=== PATIENT | female | born 1975 | race Caucasian/White ===

== ENCOUNTER → 2018-06-09 | Outpatient (CLI) | payer SELFPAY ==
[2018-06-09 11:40] LABS: Basophils # (A) 0.1 k/uL (0-0.2); Basophils % (A) 1 %; Eosinophils # (A) 0.2 k/uL (0-0.7); Eosinophils % (A) 2 %; HCT 44.5 % (34.0-46.0); HGB 14.3 gm/dL (11.4-16.0); Lymphocytes # (A) 2.3 k/uL (1.0-4.8); Lymphocytes % (A) 23 %; MCH 26.4 pg (25.0-35.0); MCHC 32.1 g/dL (31.0-37.0); MCV 82.4 fL (80.0-100.0); Mean Platelet Volume 7.1; Monocytes # (A) 0.4 k/uL (0-1.0); Monocytes % (A) 4 %; Neutrophils % (A) 69 %; Platelet Count 436 k/uL (150-450); RDW 13.2 % (11.5-15.5)
[2018-06-09 11:53] LABS: ALT 42 U/L (9-52); AST 34 U/L (14-36); Alkaline Phosphatase 108 U/L (38-126); Anion Gap 7 mmol/L; Blood Urea Nitrogen 11 mg/dL (7-17); C Reactive Protein 29.1 mg/L (<10.0); Calcium 9.4 mg/dL (8.4-10.2); Carbon Dioxide 29 mmol/L (22-30); Chloride 104 mmol/L (98-107); Cholesterol 229 mg/dL (<200); Glucose 96 mg/dL (74-99); HDL Cholesterol 59 mg/dL (40-60); LDL Cholesterol,Calculated 123 mg/dL (0-99); Sodium 140 mmol/L (137-145); Total Bilirubin 0.4 mg/dL (0.2-1.3); Total Protein 7.2 g/dL (6.3-8.2); Triglycerides 234 mg/dL (<150)
[2018-06-09 12:26] LABS: Erythrocyte Sedimentation Rate 23 mm/hr (0-20)
[2018-06-09 17:43] LABS: Hemoglobin A1C 5.6 % (4.0-6.0)
== END | disposition home or self-care (01) ==
LOC: LABWHC1 10:56
PROVIDERS: ATTEND Internal Medicine
DX: D64.9 Anemia, unspecified (principal); E78.5 Hyperlipidemia, unspecified; E03.9 Hypothyroidism, unspecified; E11.9 Type 2 diabetes mellitus without complications; M25.50 Pain in unspecified joint; I10 Essential (primary) hypertension; E87.8 Other disorders of electrolyte and fluid balance, not elsewhere classified
CPT/HCPCS: 36415; 80053; 80061; 83036; 84439; 84443; 84481; 85025; 85652; 86140

== ENCOUNTER → 2018-08-22 | Outpatient (CLI) | payer SELFPAY ==
[2018-08-22 14:02] LABS: Uric Acid 7.2 mg/dL (3.7-7.4)
[2018-08-22 19:39] LABS: Rheumatoid Factor 7 IU/mL (0-15)
[2018-08-22 22:18] LABS: Cyclic Citrullinated Pep IgG NEGATIVE (NEGATIVE)
[2018-08-23 04:54] LABS: Angiotensin-1 Converting Enz. 52 U/L (8-52)
[2018-08-23 11:09] LABS: HLA B27 NEGATIVE
== END | disposition home or self-care (01) ==
LOC: LABWHC1 12:41
PROVIDERS: ATTEND Internal Medicine Rheumatology
DX: M13.0 Polyarthritis, unspecified (principal)
CPT/HCPCS: 36415; 82164; 82306; 82550; 84550; 86038; 86200; 86431; 86812

== ENCOUNTER → 2020-04-25 | Outpatient (CLI) | payer SELFPAY ==
[2020-04-25 16:02] LABS: DHEA Sulfate 115.6 ug/dL (26.0-430.0); Estradiol 21.4 pg/mL
[2020-04-25 16:28] LABS: Progesterone <0.2 ng/mL
== END | disposition home or self-care (01) ==
LOC: LABWHC1 10:40
PROVIDERS: ATTEND Chiropractor
DX: E55.9 Vitamin D deficiency, unspecified (principal); E34.9 Endocrine disorder, unspecified
CPT/HCPCS: 36415; 82306; 82533; 82627; 82670; 84144; 84403

== ENCOUNTER → 2020-04-25 | Outpatient (CLI) | payer SELFPAY ==
--- NOTE | 2020-04-29 08:15 | MM ---
Reason for exam: screening (asymptomatic). History: Patient is postmenopausal. Family history of breast cancer in 2 paternal aunts and breast cancer in maternal aunt. Took hormonal contraceptives for 6 years. Took estrogen for 2 years beginning at age 27. Took progesterone for 2 years beginning at age 27. Physical Findings: A clinical breast exam by your physician is recommended on an annual basis and results should be correlated with mammographic findings. MG 3D Screening Mammo W/Cad Bilateral CC and MLO view(s) were taken. No prior studies available for comparison. There are scattered fibroglandular densities. ASSESSMENT: Probably benign, BI-RAD 3 RECOMMENDATION: Follow-up diagnostic mammogram and ultrasound of the left breast in 6 months. Manage patient on a clinical basis. Consider breast ultrasound of MRI
== END | disposition home or self-care (01) ==
LOC: RADMAMWWP 10:19
PROVIDERS: ATTEND Obstetrics & Gynecology Obstetrics
DX: Z12.31 Encounter for screening mammogram for malignant neoplasm of breast (principal); Z80.3 Family history of malignant neoplasm of breast
CPT/HCPCS: 77063; 77067

== ENCOUNTER 2021-08-28 16:39 | Emergency (ER) | payer OTHER ==
[2021-08-28] MEDS ORDERED: DEXAMETHASONE SOD PHOSPHATE 10 MG/ML 1 ML VIAL IM STA (18:04)
--- NOTE | 2021-08-28 19:00 | XR ---
EXAMINATION TYPE: XR chest 2V DATE OF EXAM: 08/28/2021 COMPARISON: NONE HISTORY: Chest pain TECHNIQUE: Frontal and lateral views of the chest are obtained. FINDINGS: There is no focal air space opacity. No evidence for pneumothorax. No pleural effusion. The cardiac silhouette size is within normal limits. The osseous structures are grossly intact. IMPRESSION: 1. No acute cardiopulmonary process.
--- NOTE | 2021-08-28 19:02 | ED ---
Recheck HPI - General Chief Complaint: Recheck/Abnormal Lab/Rx Stated Complaint: COVID+ Source: patient, RN notes reviewed Mode of arrival: ambulatory Limitations: no limitations - History of Present Illness Initial Comments: Patient is a 46-year-old female presents to emergency room complaining of continued symptoms of Covid. She notes she was diagnosed last week fever and ot her symptoms or if she notes she does have a history of asthma and feels as if her test is tightening up a little bit. She notes that she is not having any difficulty eating swallowing or breathing just having some chest tightness. She denied any chest pain. She was otherwise well-appearing in no apparent distress or pain while sitting up in bed during exam and interview. She notes she wanted to come in to get checked out to make sure everything her lungs looked okay. She denied chest pain headache nausea vomiting diarrhea constipation fever fatigue chills. - Related Data Home Medications Medication Instructions Recorded Confirmed Albuterol Inhaler [Ventolin Hfa 2 puff INHALATION RT-Q4H PRN 08/28/21 08/28/21 Inhaler] Promethazine 6.25MG/5Ml [Phenergan 5 ml PO Q12H PRN 08/28/21 08/28/21 Syrup] cloNIDine HCL [Catapres] 0.1 mg PO HS 08/28/21 08/28/21 Previous Rx's Medication Instructions Recorded predniSONE 50 mg PO DAILY #5 tab 08/28/21 Allergies Allergy/AdvReac Type Severity Reaction Status Date / Time iodine Allergy Anaphylaxis Verified 08/28/21 18:23 morphine AdvReac Rash/Hives Verified 08/28/21 18:23 Review of Systems ROS Statement: Those systems with pertinent positive or pertinent negative responses have been documented in the HPI. ROS Other: All systems not noted in ROS Statement are negative. Past Medical History Past Medical History: Hypertension History of Any Multi-Drug Resistant Organisms: None Reported Past Surgical History: Cholecystectomy, Hysterectomy, Tonsillectomy Past Psychological History: No Psychological Hx Reported Smoking Status: Never smoker Past Alcohol Use History: None Reported Past Drug Use History: None Reported General Exam Limitations: no limitations General appearance: alert, in no apparent distress Head exam: Present: atraumatic, normocephalic, normal inspection Eye exam: Present: normal appearance, PERRL, EOMI. Absent: scleral icterus, conjunctival injection, periorbital swelling ENT exam: Present: normal exam, mucous membranes moist Neck exam: Present: normal inspection Respiratory exam: Present: normal lung sounds bilaterally. Absent: respiratory distress, wheezes, rales, rhonchi, stridor Cardiovascular Exam: Present: regular rate, normal rhythm, normal heart sounds. Absent: systolic murmur, diastolic murmur, rubs, gallop, clicks Extremities exam: Present: normal inspection, full ROM, normal capillary refill. Absent: tenderness, pedal edema, joint swelling, calf tenderness Neurological exam: Present: alert, oriented X3 Psychiatric exam: Present: normal affect, normal mood Skin exam: Present: warm, dry, intact, normal color. Absent: rash Course Vital Signs 08/28/21 08/28/21 17:22 18:54 Temperature 97.7 F Pulse Rate 75 Respiratory 18 22 Rate Blood Pressure 163/95 O2 Sat by Pulse 97 Oximetry Medical Decision Making - Medical Decision Making 46-year-old female 1 week Covid-positive complaining of chest tightness and mild shortness of breath, history of asthma. Chest x-ray ordered. Chest x-ray shows no acute card up on her process. 10 mg Decadron ordered. Case discussed with Dr. Monteiro, patient discharge home on oral steroids and follow-up primary care. - Radiology Data Radiology results: report reviewed, image reviewed Chest x-ray: No acute cardiopulmonary process. Disposition Clinical Impression: Shortness of breath Disposition: HOME SELF-CARE Condition: Stable Instructions (If sedation given, give patient instructions): Coronavirus Disease 2019 (COVID-19) Additional Instructions: Please return to the Emergency Department if symptoms worsen or any other concerns. Follow-up primary care 1-2 days. Take prednisone as prescribed. It may take weeks to months to return to baseline. Is patient prescribed a controlled substance at d/c from ED?: No Referrals: None,Stated [Primary Care Provider] - 1-2 days Time of Disposition: 19:36
[2021-08-28 20:34] VITALS: BP 138/86; PULSE 80; RESP 18; TEMP 97.9
== END 2021-08-28 20:20 | disposition home or self-care (01) ==
LOC: EC 16:39
DX: R06.02 Shortness of breath (principal); I10 Essential (primary) hypertension; J45.909 Unspecified asthma, uncomplicated; Z79.51 Long term (current) use of inhaled steroids
CPT/HCPCS: 71046; 99284; 96372; J1100

== ENCOUNTER → 2022-04-16 | Outpatient (CLI) | payer SELFPAY ==
[2022-04-16 14:12] LABS: HCT 43.5 % (37.2-46.3); HGB 13.8 g/dL (12.0-15.0); MCH 26.4 pg (27.0-32.0); MCHC 31.7 g/dL (32.0-37.0); MCV 83.2 fL (80.0-97.0); NRBC Per 100 WBC 0 /100 WBCS (0.0-0.0); Platelet Count 399 X 10*3/uL (140-440); RBC 5.23 X 10*6/uL (4.10-5.20); RDW 13.8 % (11.5-14.5); WBC 7.98 X 10*3/uL (4.50-10.00)
[2022-04-16 14:44] LABS: ALT 36 U/L (8-44); AST 21 U/L (13-35); African American GFR (CKD) 109.8 (60.0-200.0); Albumin 4.3 g/dL (3.8-4.9); Albumin/Globulin Ratio 1.62 (1.60-3.17); Alkaline Phosphatase 95 U/L (41-126); BUN/Creat Ratio 18.88 Ratio (12.00-20.00); Blood Urea Nitrogen 14.1 mg/dL (9.0-27.0); Calcium 9.2 mg/dL (8.7-10.3); Chloride 102 mmol/L (96-109); Chol/HDL Ratio 3.69 Ratio; Globulin 2.7 g/dL (1.6-3.3); Glucose 98 mg/dL (70-110); LDL Cholesterol,Calculated 142.3 mg/dL (0.0-131.0); Non-African American GFR(CKD) 94.7 (60.0-200.0); Potassium 4.3 mmol/L (3.5-5.5); Sodium 140 mmol/L (135-145)
[2022-04-16 14:48] LABS: Follicle Stimulating Hormone 82.6 mIU/mL; Luteinizing Hormone 43.9 mIU/mL
== END | disposition home or self-care (01) ==
LOC: LABWHC1 08:22
PROVIDERS: ATTEND Internal Medicine
DX: E03.9 Hypothyroidism, unspecified (principal); D64.9 Anemia, unspecified; E87.8 Other disorders of electrolyte and fluid balance, not elsewhere classified; E78.5 Hyperlipidemia, unspecified; D50.9 Iron deficiency anemia, unspecified; N18.9 Chronic kidney disease, unspecified; R73.09 Other abnormal glucose; R53.83 Other fatigue
CPT/HCPCS: 36415; 80053; 80061; 82672; 83001; 83002; 83036; 84439; 84443; 84481; 85027

== ENCOUNTER → 2022-04-16 | Outpatient (CLI) | payer SELFPAY ==
--- NOTE | 2022-04-19 18:47 | MM ---
Reason for Exam: Screening (asymptomatic). Last mammogram was performed 2 year(s) and 0 month(s) ago. Patient History: Menarche at age 12. First Full-Term at age 15. Left ovary removed at age 27. Right ovary removed at age 27. Hysterectomy at age 27. Postmenopausal. Patient has history of breast feeding. Estrogen for 2 years from age 27 until age 29. Progesterone for 2 years from age 27 until age 29. Patient used Hormonal Contraceptives for 6 years. Paternal aunt had breast cancer. Paternal aunt had breast cancer. Maternal aunt had breast cancer. Risk Values: Jacqui 5 year model risk: 0.7%. NCI Lifetime model risk: 6.7%. Prior Study Comparison: 04/25/2020 Bilateral Screening Mammogram, [facility]. Tissue Density: The breast tissue is heterogeneously dense. This may lower the sensitivity of mammography. Findings: Analyzed By CAD. No significant change from prior exams. Overall Assessment: Negative, BI-RAD 1 Management: Screening Mammogram of both breasts in 1 year. 1. A clinical breast exam by your physician is recommended on an annual basis and results should be correlated with mammographic findings. 2. The patient should continue monthly self breast exams. 3. This exam should not preclude additional follow-up of suspicious palpable abnormalities. Electronically signed and approved by: Jayson Lange M.D. Radiologist
== END | disposition home or self-care (01) ==
LOC: RADMAMWWP 07:51
PROVIDERS: ATTEND Obstetrics & Gynecology Obstetrics
DX: Z12.31 Encounter for screening mammogram for malignant neoplasm of breast (principal); Z78.0 Asymptomatic menopausal state; Z80.3 Family history of malignant neoplasm of breast
CPT/HCPCS: 77063; 77067

== ENCOUNTER → 2022-09-01 | Outpatient (CLI) | payer SELFPAY | END | disposition home or self-care (01) | LOC: LABWHC1 09:03 | PROVIDERS: ATTEND Family Medicine | DX: F41.9 Anxiety disorder, unspecified (principal); E27.1 Primary adrenocortical insufficiency | CPT/HCPCS: 36415; 82024; 82533 ==

== ENCOUNTER → 2023-04-25 | Outpatient (CLI) | payer SELFPAY ==
[2023-04-25 11:32] LABS: T4, Free (Free Thyroxine) 1.76 ng/dL (0.80-1.80)
== END | disposition home or self-care (01) ==
LOC: LABWHC1 07:02
PROVIDERS: ATTEND Nurse Practitioner
DX: E03.9 Hypothyroidism, unspecified (principal)
CPT/HCPCS: 36415; 82533; 84439; 84443

== ENCOUNTER → 2023-10-20 | Outpatient (CLI) | payer SELFPAY ==
[2023-10-20 11:09] LABS: Basophils # (A) 0.09 X 10*3/uL (0.00-0.10); Eosinophils % (A) 4.6 %; HCT 40.8 % (37.2-46.3); HGB 13.1 g/dL (12.0-15.0); MCH 27.3 pg (27.0-32.0); MCHC 32.1 g/dL (32.0-37.0); Mean Platelet Volume 10.4 FL (9.5-12.2); Monocytes # (A) 0.68 X 10*3/uL (0.20-1.00); Monocytes % (A) 7.8 %; NRBC Per 100 WBC 0 X 10*3/uL (0.00-0.01); Neutrophils # (A) 4.05 X 10*3/uL (1.80-7.70); Neutrophils % (A) 46.4 %; Platelet Count 369 X 10*3/uL (140-440); RDW 13.1 % (11.5-14.5); WBC 8.74 X 10*3/uL (4.50-10.00)
[2023-10-20 11:37] LABS: ALT 38 U/L (8-44); AST 23 U/L (13-35); Albumin/Globulin Ratio 1.67 Ratio (1.60-3.17); Alkaline Phosphatase 107 U/L (41-126); Blood Urea Nitrogen 18.3 mg/dL (9.0-27.0); Calcium 9.6 mg/dL (8.7-10.3); Carbon Dioxide 27.5 mmol/L (21.6-31.8); Chloride 103 mmol/L (96-109); Chol/HDL Ratio 3.62 Ratio; Globulin 2.4 g/dL (1.6-3.3); Glucose 115 mg/dL (70-110); LDL Cholesterol,Calculated 130.6 mg/dL (0.0-131.0); Potassium 4.6 mmol/L (3.5-5.5); Sodium 140 mmol/L (135-145); T4, Free (Free Thyroxine) 1.11 ng/dL (0.80-1.80); Total Bilirubin 0.3 mg/dL (0.3-1.2); Total Protein 6.4 g/dL (6.2-8.2)
[2023-10-20 21:04] LABS: ACTH 29.4 pg/mL (0.00-45.99)
== END | disposition home or self-care (01) ==
LOC: LABWHC1 06:55
PROVIDERS: ATTEND Nurse Practitioner
DX: I10 Essential (primary) hypertension (principal); E03.8 Other specified hypothyroidism
CPT/HCPCS: 36415; 80053; 80061; 82024; 82533; 84439; 84443; 84480; 85025

== ENCOUNTER → 2024-01-13 | Outpatient (CLI) | payer SELFPAY | END | disposition home or self-care (01) | LOC: LABWHC1 14:33 | PROVIDERS: ATTEND Internal Medicine Endocrinology, Diabetes & Metabolism | DX: E03.8 Other specified hypothyroidism (principal) | CPT/HCPCS: 36415; 84443 ==

== ENCOUNTER → 2024-08-01 | Outpatient (CLI) | payer SELFPAY | END | disposition home or self-care (01) | LOC: LABWHC1 09:47 | PROVIDERS: ATTEND Internal Medicine Endocrinology, Diabetes & Metabolism | DX: E03.8 Other specified hypothyroidism (principal) | CPT/HCPCS: 36415; 84443 ==